=== PATIENT | male | born 2000 | race African-American/Black ===

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

== ENCOUNTER 2020-01-25 11:26 | Emergency (ER) | payer SELFPAY ==
--- NOTE | 2020-01-25 12:49 | RAD ---
3 VIEWS RIGHT HAND: Date: 01/25/2020 HISTORY: Patient punched a wall a week ago with pain and swelling. FINDINGS: 3 views of the right hand show a moderately displaced fracture of the mid portion of the fifth metaca rpal with overlying soft tissue swelling. No dislocation is seen. IMPRESSION: Right fifth metacarpal fracture. POS: [facility]
== END 2020-01-25 16:10 | disposition home or self-care (01) ==
LOC: ERS 11:26
DX: S62.326A Displaced fracture of shaft of fifth metacarpal bone, right hand, initial encounter for closed fracture (principal); F17.210 Nicotine dependence, cigarettes, uncomplicated; W22.01XA Walked into wall, initial encounter
CPT/HCPCS: 26605